=== PATIENT | female | born 1975 | race Caucasian/White ===

== ENCOUNTER 2024-10-11 11:00 | Inpatient (IN) | payer OTHER ==
[2024-10-30 14:57] VITALS: BMI 30.8
[2024-11-03] MEDS ORDERED: ROCURONIUM BROMIDE 50 MG/5 ML SYRINGE ONE (07:36)
[2024-11-03] MEDS ORDERED: SUCCINYLCHOLINE CHLORIDE 200 MG/10 ML SYRINGE ONE (07:36)
[2024-11-03] MEDS ORDERED: PROPOFOL 100 ML ONE (07:36)
[2024-11-03] MEDS ORDERED: MIDAZOLAM HCL 2 MG/2 ML SINGLE DOSE VIAL ONE (07:36)
[2024-11-03] MEDS ORDERED: ONDANSETRON 4 MG/2 ML VIAL IVPUSH PRN ×3 (08:04→12:18)
[2024-11-03] MEDS ORDERED: DEXAMETHASONE SOD PHOSPHATE 10 MG/1 ML VIAL ONE (08:08)
[2024-11-03] MEDS ORDERED: ROPIVACAINE HCL 0.5% 30ML VIAL ONE (08:08)
[2024-11-03] MEDS ORDERED: DEXMEDETOMIDINE HCL 200 MCG/2 ML IVPB ONE (08:08)
[2024-11-03] MEDS ORDERED: ACETAMINOPHEN INJECTION 100 ML ONE (08:08)
[2024-11-03] MEDS ORDERED: PROPOFOL 40 ML ONE (10:15)
[2024-11-03] MEDS ORDERED: SUGAMMADEX SODIUM 200 MG/2 ML VIAL ONE (11:18)
[2024-11-03] MEDS ORDERED: PROPOFOL 20 ML ONE (11:47)
[2024-11-03] MEDS ORDERED: DOCUSATE SODIUM 100 MG CAPSULE (FP) PO PRN (12:18)
[2024-11-03] MEDS ORDERED: BISACODYL 5 MG TABLET.DR (FP) PO PRN (12:18)
[2024-11-03] MEDS: LACTATED RINGERS SOLUTION 1,000 ML IV SCH ×2 (12:34→15:08)
[2024-11-03] MEDS ORDERED: ACETAMINOPHEN 1000 MG/100 ML BAG IVPB SCH (15:00)
[2024-11-03] MEDS: ACETAMINOPHEN 1000 MG/100 ML BAG IVPB SCH (15:08)
[2024-11-03] MEDS: CEFAZOLIN 1 GM in DEXTROSE 5%-WATER - 50 ML IVPB SCH (17:16)
[2024-11-03] MEDS: IBUPROFEN 800 MG/8 ML IJ IVPB SCH (18:10)
[2024-11-03 22:07] VITALS: RESP 18
[2024-11-04 07:32] LABS: MCHC 32.5 g/dl (32.2-35.5); MEAN CELL VOLUME 86.4 fl (79.4-94.8); MEAN PLT VOLUME 10.7 fl (9.4-12.3); RDW 15.0 % (12.2-17.1)
[2024-11-04 07:50] LABS: CO2 23.0 mmol/L (21-32); GLUCOSE,RANDOM 122.0 mg/dL (74-106)
[2024-11-04 07:53] LABS: CREATININE 0.4 mg/dL (0.55-1.3)
[2024-11-04] MEDS: amLODIPine BESYLATE 2.5 MG TABLET (FP) PO SCH (09:37)
[2024-11-04] MEDS: LISINOPRIL 10 MG TABLET PO SCH (09:37)
[2024-11-04] MEDS: ENOXAPARIN NA (PORCINE) 40 MG/0.4 ML DISP.SYRIN SQ SCH (09:37)
[2024-11-04] MEDS: ACETAMINOPHEN 500 MG TABLET (FP) PO SCH (12:57)
[2024-11-04] MEDS: IBUPROFEN 600 MG TABLET (FP) PO SCH (16:08)
[2024-11-04] MEDS: SIMETHICONE 80 MG TAB.CHEW (FP) PO PRN (16:13)
[2024-11-05 08:34] LABS: ABSOLUTE IMMATURE GRANULOCYTES 0.04 x10^3/uL (0.0-0.031); BASOPHILS # 0.04 x10^3/uL (0.01-0.08); EOSINOPHIL % 0.9 % (0.7-5.8); EOSINOPHILS # 0.09 x10^3/uL (0.04-0.36); MCHC 31.9 g/dl (32.2-35.5); MEAN CELL VOLUME 88.3 fl (79.4-94.8); MEAN PLT VOLUME 10.4 fl (9.4-12.3); MONOCYTE # 0.61 x10^3/uL (0.24-0.86); MONOCYTE % 6.3 % (4.7-12.5); RDW 15.4 % (12.2-17.1)
[2024-11-05 09:31] LABS: CO2 26.0 mmol/L (21-32); GLUCOSE,RANDOM 96.0 mg/dL (74-106)
[2024-11-05 09:34] LABS: CREATININE 0.5 mg/dL (0.55-1.3)
[2024-11-05 09:51] VITALS: BP 130/81; PULSE 73; TEMP 98.4
== END 2024-11-05 13:00 | disposition home or self-care (01) | DRG 743 ==
LOC: EDSTATUS 11:00 → J2C 11-03 06:36 → J3W 11-03 14:55
PROVIDERS: ADMIT Obstetrics & Gynecology; ATTEND Obstetrics & Gynecology
PROC: 0U910ZZ Drainage of Left Ovary, Open Approach (ICD-10-PCS; 2024-11-03)
PROC: 0UT70ZZ Resection of Bilateral Fallopian Tubes, Open Approach (ICD-10-PCS; 2024-11-03)
PROC: 0UT90ZZ Resection of Uterus, Open Approach (ICD-10-PCS; 2024-11-03)
PROC: 0DNW0ZZ Release Peritoneum, Open Approach (ICD-10-PCS; principal; 2024-11-03 08:00)
DX: D25.9 Leiomyoma of uterus, unspecified (principal); N83.292 Other ovarian cyst, left side
CPT/HCPCS: 36415; 80048; 81025; 85025; 85027; 86850; 86900; 86901; 88305-TC; 88307-TC; 94010; 94760; J1100